=== PATIENT | female | born 1970 | race Caucasian/White ===

== ENCOUNTER → 2016-07-31 | Outpatient (CLI) | payer OTHER ==
[~2016-07-31] MED LIST: CEPH-331 PO
--- NOTE | 2016-08-02 08:59 | Diagnostic Imaging Report ---
EXAM: Bilateral Digital Screening Mammography, with computer aided detection system (CAD). DATE: July 31, 2016. COMPARISON: July 27, 2015; July 13, 2014; May 31, 2013. INDICATION: Breast cancer screening. FINDINGS: There are scattered fibroglandular densities. There are no suspicious findings in either breast. IMPRESSION: No mammographic evidence of malignancy. Recommend annual screening mammography and clinical breast exam. ACR BI-RADS Category 1: Negative. Result letter will be mailed to the patient. Note: At least 10% of breast cancer is not imaged by mammography. Dictated by: Dictated on workstation # [id number]
== END ==
LOC: RAD 13:50
PROVIDERS: ATTEND Family Medicine
DX: Z12.31 Encounter for screening mammogram for malignant neoplasm of breast (principal)